=== PATIENT | male | born 1960 | race Caucasian/White ===

== ENCOUNTER 2018-04-21 09:57 | Inpatient (IN) | payer BC ==
[2018-04-21] MEDS: SOD CHLORIDE 0.9% 1,000 ML IV ×4 (10:58→13:39)
[2018-04-21] MEDS: ONDANSETRON 4 MG INJ IV ×3 (10:58→13:26)
[2018-04-21] MEDS: morphine 4 MG/ML VIAL IV (10:58)
[2018-04-21 10:59] LABS: ADD MAN DIFF? NO
[2018-04-21 11:15] LABS: WHITE BLOOD COUNT 15.2 10^3/ul (4.8-10.8)
[2018-04-21 11:15] LABS: BASOPHILS % 0.1 % (0.0-2.0); EOSINOPHILS % 0.1 % (0.0-7.0); HEMATOCRIT 49.8 % (42.0-52.0); HEMOGLOBIN 16.7 g/dl (14.0-18.0); LYMPHOCYTES # 2.6 10^3/ul (0.8-2.9); LYMPHOCYTES % 17.4 % (15.0-51.0); MEAN CORPUSCULAR HEMOGLOBIN 28.5 pg (29.0-33.0); MEAN CORPUSCULAR HGB CONC 33.5 g/dl (32.0-37.0); MEAN PLATELET VOLUME 11.3 fl (7.4-10.4); MONOCYTE # 1.2 10^3/ul (0.3-0.9); MONOCYTES % 7.6 % (0.0-11.0); NEUTROPHIL # 11.3 10^3/ul (1.6-7.5); NEUTROPHILS % 74.3 % (39.0-77.0); PLATELET COUNT 203 10^3/UL (140-415); RED BLOOD COUNT 5.86 10^6/ul (4.70-6.10); RED CELL DISTRIBUTION WIDTH 13.5 % (11.5-14.5)
[2018-04-21 11:20] LABS: INR 0.93; PROTIME 12.6 Sec (11.9-14.9)
[2018-04-21 11:21] LABS: PARTIAL THROMBOPLASTIN TIME 24.4 Sec (25.0-35.0)
[2018-04-21 11:28] LABS: ALBUMIN 4.4 g/dl (3.3-4.9); ALBUMIN/GLOBULIN RATIO 1.33; ALKALINE PHOSPHATASE 188 IU/L (42-121); ANION GAP 14 (8-16); BILIRUBIN,INDIRECT 1.3 mg/dl (0-1.1); BILIRUBIN,TOTAL 2.1 mg/dl (0.2-1.3); BLOOD UREA NITROGEN 16 mg/dl (7-20); CALCIUM 9.7 mg/dl (8.4-10.2); CARBON DIOXIDE 26 mmol/L (21-31); CHLORIDE 105 mmol/L (97-110); CREATININE 1.08 mg/dl (0.61-1.24); GLUCOSE 166 mg/dl (70-220); POTASSIUM 4.2 mmol/L (3.5-5.1); SODIUM 141 mmol/L (135-144); TOTAL PROTEIN 7.7 g/dl (6.1-8.1)
[2018-04-21 11:36] LABS: ASPARTATE AMINO TRANSFERASE 1188 IU/L (15-46)
[2018-04-21 11:39] LABS: TROPONIN-I < 0.012 ng/ml (0.000-0.120)
[2018-04-21 11:41] LABS: ALANINE AMINOTRANSFERASE 1276 IU/L (13-69)
[2018-04-21] MEDS: IODIXANOL LOCM 100 ML BTL (11:50)
[2018-04-21] MEDS: SOD CHLORIDE 0.9% 100 ML (11:50)
[2018-04-21] MEDS ORDERED: PIPER-TAZO 3.375 GM IV (PMX) 100 ML IVPB (11:59)
[2018-04-21 12:10] LABS: LIPASE 46917 U/L (23-300)
[2018-04-21 12:31] LABS: AMYLASE 3671 U/L (11-123)
[2018-04-21] MEDS: HYDROmorphONE 1 MG/ML SYG IV ×2 (12:44→13:26)
[2018-04-21] MEDS: CIPROFLOXACIN 400MG/D5W 200 ML IVPB ×2 (12:50→21:30)
[2018-04-21] MEDS: metroNIDAZOLE 500 MG/NS (PMX) 100 ML IVPB ×3 (13:26→22:58)
[2018-04-21 13:32] LABS: ETHANOL < 10.0 mg/dl
[2018-04-21 13:52] LABS: TRIGLYCERIDES 105 mg/dl (0-149)
[2018-04-21] MEDS ORDERED: ONDANSETRON 4 MG INJ IV (14:00)
[2018-04-21] MEDS ORDERED: CIPROFLOXACIN 400MG/D5W 200 ML IVPB (14:00)
[2018-04-21] MEDS ORDERED: ACETAMINOPHEN 650 MG SUPP PR (14:00)
[2018-04-21] MEDS ORDERED: NACL 0.9% 3 ML SYG IV (14:00)
[2018-04-21] MEDS: FAMOTIDINE 20 MG INJ IV (21:29)
[2018-04-22] MEDS: SOD CHLORIDE 0.9% 1,000 ML IV ×6 (02:16→23:35)
[2018-04-22 05:52] LABS: ADD MAN DIFF? NO
[2018-04-22 05:54] LABS: BASOPHILS % 0.1 % (0.0-2.0); EOSINOPHILS # 0.1 10^3/ul (0.0-0.5); EOSINOPHILS % 0.6 % (0.0-7.0); HEMATOCRIT 41.5 % (42.0-52.0); HEMOGLOBIN 13.6 g/dl (14.0-18.0); LYMPHOCYTES # 2.8 10^3/ul (0.8-2.9); LYMPHOCYTES % 22.4 % (15.0-51.0); MEAN CORPUSCULAR HEMOGLOBIN 28.4 pg (29.0-33.0); MEAN CORPUSCULAR HGB CONC 32.8 g/dl (32.0-37.0); MEAN CORPUSCULAR VOLUME 86.6 fl (82.0-101.0); MEAN PLATELET VOLUME 10.9 fl (7.4-10.4); MONOCYTE # 0.9 10^3/ul (0.3-0.9); MONOCYTES % 7.3 % (0.0-11.0); NEUTROPHIL # 8.8 10^3/ul (1.6-7.5); NEUTROPHILS % 69.4 % (39.0-77.0); PLATELET COUNT 151 10^3/UL (140-415); RED BLOOD COUNT 4.79 10^6/ul (4.70-6.10); RED CELL DISTRIBUTION WIDTH 13.9 % (11.5-14.5)
[2018-04-22 05:54] LABS: WHITE BLOOD COUNT 12.7 10^3/ul (4.8-10.8)
[2018-04-22 06:30] LABS: ALANINE AMINOTRANSFERASE 727 IU/L (13-69); ALBUMIN 3.1 g/dl (3.3-4.9); ALBUMIN/GLOBULIN RATIO 1.19; ALKALINE PHOSPHATASE 155 IU/L (42-121); AMYLASE 624 U/L (11-123); ANION GAP 9 (8-16); ASPARTATE AMINO TRANSFERASE 370 IU/L (15-46); BILIRUBIN,INDIRECT 1.4 mg/dl (0-1.1); BILIRUBIN,TOTAL 1.4 mg/dl (0.2-1.3); BLOOD UREA NITROGEN 11 mg/dl (7-20); CALCIUM 7.9 mg/dl (8.4-10.2); CARBON DIOXIDE 27 mmol/L (21-31); CHLORIDE 109 mmol/L (97-110); CHOL/HDL RATIO 3.5 RATIO; CHOLESTEROL 140 mg/dl (100-200); CREATININE 0.97 mg/dl (0.61-1.24); GLUCOSE 101 mg/dl (70-220); HDL CHOLESTEROL 40 mg/dl (28-71); LDL CHOLESTEROL,CALCULATED 88 mg/dl; PHOSPHORUS 2.7 mg/dl (2.5-4.9); POTASSIUM 3.6 mmol/L (3.5-5.1); SODIUM 141 mmol/L (135-144); TOTAL PROTEIN 5.7 g/dl (6.1-8.1); TRIGLYCERIDES 61 mg/dl (0-149)
[2018-04-22 06:39] LABS: LIPASE 3094 U/L (23-300)
[2018-04-22] MEDS: metroNIDAZOLE 500 MG/NS (PMX) 100 ML IVPB ×3 (06:58→21:36)
[2018-04-22 07:07] LABS: HEMOGLOBIN A1C 6.2 % (0-5.9)
[2018-04-22] MEDS: morphine 2 MG INJ IV ×5 (07:50→15:52)
[2018-04-22] MEDS: FAMOTIDINE 20 MG INJ IV ×2 (09:57→21:37)
[2018-04-22] MEDS: CIPROFLOXACIN 400MG/D5W 200 ML IVPB ×2 (15:06→21:36)
[2018-04-23] MEDS: SOD CHLORIDE 0.9% 1,000 ML IV ×3 (04:35→21:37)
[2018-04-23 05:17] LABS: WHITE BLOOD COUNT 11.8 10^3/ul (4.8-10.8)
[2018-04-23 05:17] LABS: ADD MAN DIFF? NO; BASOPHILS % 0.1 % (0.0-2.0); EOSINOPHILS # 0.1 10^3/ul (0.0-0.5); EOSINOPHILS % 0.7 % (0.0-7.0); HEMATOCRIT 41.4 % (42.0-52.0); LYMPHOCYTES # 2.7 10^3/ul (0.8-2.9); LYMPHOCYTES % 22.6 % (15.0-51.0); MEAN CORPUSCULAR HEMOGLOBIN 29.3 pg (29.0-33.0); MEAN CORPUSCULAR HGB CONC 33.8 g/dl (32.0-37.0); MEAN CORPUSCULAR VOLUME 86.6 fl (82.0-101.0); MONOCYTES % 8.3 % (0.0-11.0); NEUTROPHILS % 67.9 % (39.0-77.0); PLATELET COUNT 150 10^3/UL (140-415); RED BLOOD COUNT 4.78 10^6/ul (4.70-6.10); RED CELL DISTRIBUTION WIDTH 13.8 % (11.5-14.5)
[2018-04-23] MEDS: metroNIDAZOLE 500 MG/NS (PMX) 100 ML IVPB ×3 (05:26→22:45)
[2018-04-23 05:50] LABS: ALBUMIN 3.3 g/dl (3.3-4.9); ALBUMIN/GLOBULIN RATIO 1.32; ALKALINE PHOSPHATASE 149 IU/L (42-121); AMYLASE 170 U/L (11-123); ANION GAP 10 (8-16); ASPARTATE AMINO TRANSFERASE 130 IU/L (15-46); BILIRUBIN,INDIRECT 1.4 mg/dl (0-1.1); BILIRUBIN,TOTAL 1.4 mg/dl (0.2-1.3); BLOOD UREA NITROGEN 9 mg/dl (7-20); CALCIUM 8.6 mg/dl (8.4-10.2); CARBON DIOXIDE 24 mmol/L (21-31); CHLORIDE 111 mmol/L (97-110); CREATININE 0.93 mg/dl (0.61-1.24); GLUCOSE 89 mg/dl (70-220); POTASSIUM 3.2 mmol/L (3.5-5.1); SODIUM 142 mmol/L (135-144); TOTAL PROTEIN 5.8 g/dl (6.1-8.1)
[2018-04-23] MEDS: POTASSIUM CHLORIDE 100 ML IVPB ×2 (06:51→08:54)
[2018-04-23] MEDS ORDERED: ACETAMINOPHEN 1000 MG/100 ML IVPB (07:00)
[2018-04-23 07:21] LABS: ALANINE AMINOTRANSFERASE 467 IU/L (13-69)
[2018-04-23 08:06] LABS: LIPASE 308 U/L (23-300)
[2018-04-23] MEDS: FAMOTIDINE 20 MG INJ IV ×2 (08:54→20:57)
[2018-04-23] MEDS: morphine 2 MG INJ IV (08:55)
[2018-04-23 08:57] LABS: MAGNESIUM 2.5 mg/dl (1.7-2.5)
[2018-04-23] MEDS: CIPROFLOXACIN 400MG/D5W 200 ML IVPB ×2 (09:00→21:35)
[2018-04-23] MEDS: POTASSIUM CHLORIDE (SR) 20 MEQ TAB PO (09:07)
[2018-04-23] MEDS ORDERED: PROPOFOL 20 ML (09:58)
[2018-04-23] MEDS ORDERED: LIDOCAINE 2% (SDV) 5 ML INJ (09:58)
[2018-04-23] MEDS ORDERED: SUCCINYLCHOLINE CHLORIDE 100 MG/5 ML SYG IV (09:58)
[2018-04-23] MEDS ORDERED: ROCURONIUM 50 MG INJ (09:58)
[2018-04-23] MEDS ORDERED: MIDAZOLAM 1 MG/ML 2 ML INJ (09:59)
[2018-04-23] MEDS ORDERED: DIPHENHYDRAMINE 50 MG INJ IV (10:00)
[2018-04-23] MEDS ORDERED: HYDROmorphONE 0.5 MG/0.5 ML SYG IV ×2 (10:00)
[2018-04-23] MEDS ORDERED: FENTAnyl 50 MCG/ML VIAL IV ×3 (10:00)
[2018-04-23] MEDS ORDERED: ONDANSETRON 4 MG INJ IV ×3 (10:00→16:30)
[2018-04-23] MEDS ORDERED: MEPERIDINE 25 MG INJ IV (10:00)
[2018-04-23] MEDS ORDERED: DEXAMETHASONE 4 MG/ML 1 ML INJ (10:22)
[2018-04-23] MEDS ORDERED: ONDANSETRON 4 MG INJ (10:22)
[2018-04-23] MEDS ORDERED: FAMOTIDINE 20 MG INJ (10:23)
[2018-04-23] MEDS: BUPIVACAINE 0.25% (MPF) 30 ML INJ (10:32)
[2018-04-23] MEDS ORDERED: ROPIVACAINE 0.5 % 30 ML VIAL (11:00)
[2018-04-23] MEDS ORDERED: FENTAnyl 50 MCG/ML VIAL (11:00)
[2018-04-23] MEDS ORDERED: SUGAMMADEX SODIUM 200 MG/2 ML VIAL IV (11:03)
[2018-04-23] MEDS ORDERED: OXYCODONE/ACETAMINOPHEN (5/325) TAB PO (11:30)
[2018-04-23] MEDS ORDERED: morphine 2 MG INJ IV (11:30)
[2018-04-23] MEDS: HYDROmorphONE 0.5 MG/0.5 ML SYG IV ×2 (12:34→13:31)
[2018-04-23] MEDS: OXYCODONE/ACETAMINOPHEN (5/325) TAB PO ×2 (14:55→17:35)
[2018-04-24] MEDS: OXYCODONE/ACETAMINOPHEN (5/325) TAB PO ×3 (00:07→20:18)
[2018-04-24] MEDS: SOD CHLORIDE 0.9% 1,000 ML IV ×3 (03:48→21:22)
[2018-04-24 05:08] LABS: ADD MAN DIFF? NO
[2018-04-24 05:27] LABS: BASOPHILS % 0.1 % (0.0-2.0); EOSINOPHILS % 0.1 % (0.0-7.0); HEMATOCRIT 44.7 % (42.0-52.0); HEMOGLOBIN 14.7 g/dl (14.0-18.0); LYMPHOCYTES # 2.5 10^3/ul (0.8-2.9); LYMPHOCYTES % 18.7 % (15.0-51.0); MEAN CORPUSCULAR HEMOGLOBIN 28.7 pg (29.0-33.0); MEAN CORPUSCULAR HGB CONC 32.9 g/dl (32.0-37.0); MEAN CORPUSCULAR VOLUME 87.1 fl (82.0-101.0); MEAN PLATELET VOLUME 11.3 fl (7.4-10.4); MONOCYTE # 1.3 10^3/ul (0.3-0.9); MONOCYTES % 10.2 % (0.0-11.0); NEUTROPHIL # 9.3 10^3/ul (1.6-7.5); NEUTROPHILS % 70.5 % (39.0-77.0); PLATELET COUNT 187 10^3/UL (140-415); RED BLOOD COUNT 5.13 10^6/ul (4.70-6.10)
[2018-04-24 05:27] LABS: WHITE BLOOD COUNT 13.1 10^3/ul (4.8-10.8)
[2018-04-24 06:04] LABS: LIPASE 187 U/L (23-300)
[2018-04-24] MEDS: metroNIDAZOLE 500 MG/NS (PMX) 100 ML IVPB ×3 (06:18→21:22)
[2018-04-24 07:32] LABS: ALANINE AMINOTRANSFERASE 355 IU/L (13-69); ALBUMIN 2.9 g/dl (3.3-4.9); ALBUMIN/GLOBULIN RATIO 1.07; ALKALINE PHOSPHATASE 134 IU/L (42-121); AMYLASE 82 U/L (11-123); ANION GAP 10 (8-16); ASPARTATE AMINO TRANSFERASE 89 IU/L (15-46); BILIRUBIN,INDIRECT 0.9 mg/dl (0-1.1); BILIRUBIN,TOTAL 0.9 mg/dl (0.2-1.3); BLOOD UREA NITROGEN 9 mg/dl (7-20); CALCIUM 8.9 mg/dl (8.4-10.2); CARBON DIOXIDE 26 mmol/L (21-31); CHLORIDE 109 mmol/L (97-110); CREATININE 1.04 mg/dl (0.61-1.24); GLUCOSE 121 mg/dl (70-220); POTASSIUM 4.3 mmol/L (3.5-5.1); SODIUM 141 mmol/L (135-144); TOTAL PROTEIN 5.6 g/dl (6.1-8.1)
[2018-04-24] MEDS: FAMOTIDINE 20 MG INJ IV ×2 (08:50→20:12)
[2018-04-24] MEDS: CIPROFLOXACIN 400MG/D5W 200 ML IVPB ×2 (08:50→20:12)
[2018-04-25] MEDS: SOD CHLORIDE 0.9% 1,000 ML IV (05:03)
[2018-04-25] MEDS: metroNIDAZOLE 500 MG/NS (PMX) 100 ML IVPB (05:04)
[2018-04-25 05:06] LABS: ADD MAN DIFF? NO
[2018-04-25 05:11] LABS: BASOPHILS % 0.2 % (0.0-2.0); EOSINOPHILS # 0.1 10^3/ul (0.0-0.5); EOSINOPHILS % 0.9 % (0.0-7.0); HEMATOCRIT 44.1 % (42.0-52.0); HEMOGLOBIN 14.7 g/dl (14.0-18.0); LYMPHOCYTES % 25.3 % (15.0-51.0); MEAN CORPUSCULAR HEMOGLOBIN 29.1 pg (29.0-33.0); MEAN CORPUSCULAR HGB CONC 33.3 g/dl (32.0-37.0); MEAN CORPUSCULAR VOLUME 87.2 fl (82.0-101.0); MEAN PLATELET VOLUME 10.6 fl (7.4-10.4); MONOCYTES % 8.4 % (0.0-11.0); NEUTROPHIL # 7.8 10^3/ul (1.6-7.5); NEUTROPHILS % 64.8 % (39.0-77.0); PLATELET COUNT 172 10^3/UL (140-415); RED BLOOD COUNT 5.06 10^6/ul (4.70-6.10); RED CELL DISTRIBUTION WIDTH 13.7 % (11.5-14.5)
[2018-04-25 05:36] LABS: LIPASE 263 U/L (23-300)
[2018-04-25 05:51] LABS: ALANINE AMINOTRANSFERASE 241 IU/L (13-69); ALBUMIN 2.9 g/dl (3.3-4.9); ALBUMIN/GLOBULIN RATIO 1.11; ALKALINE PHOSPHATASE 113 IU/L (42-121); ANION GAP 9 (8-16); ASPARTATE AMINO TRANSFERASE 53 IU/L (15-46); BLOOD UREA NITROGEN 9 mg/dl (7-20); CALCIUM 8.7 mg/dl (8.4-10.2); CARBON DIOXIDE 27 mmol/L (21-31); CHLORIDE 109 mmol/L (97-110); CREATININE 1.03 mg/dl (0.61-1.24); GLUCOSE 116 mg/dl (70-220); POTASSIUM 3.7 mmol/L (3.5-5.1); SODIUM 141 mmol/L (135-144); TOTAL PROTEIN 5.5 g/dl (6.1-8.1)
[2018-04-25] MEDS: FAMOTIDINE 20 MG INJ IV (08:57)
[2018-04-25] MEDS: CIPROFLOXACIN 400MG/D5W 200 ML IVPB (08:57)
== END 2018-04-25 14:17 | disposition home or self-care (01) | DRG 418 ==
LOC: ICU 13:16 → MS1 04-23 17:58 → E/R 09:57
PROC: 0FT44ZZ Resection of Gallbladder, Percutaneous Endoscopic Approach (ICD-10-PCS; principal; 2018-04-23 10:00)
DX: K85.10 Biliary acute pancreatitis without necrosis or infection (principal); K80.00 Calculus of gallbladder with acute cholecystitis without obstruction; K40.20 Bilateral inguinal hernia, without obstruction or gangrene, not specified as recurrent; N40.0 Benign prostatic hyperplasia without lower urinary tract symptoms; R74.0 Nonspecific elevation of levels of transaminase and lactic acid dehydrogenase [LDH]
CPT/HCPCS: 71275; 74181; 75635; 80053; 80061; 80307; 82150; 83036; 83690; 83735; 84100; 84478; 84484; 85025; 85610; 85730; 87040; 87086; 88304; 93005; 96361; 96374; 96375; 96376; 99291-25